=== PATIENT | male | born 1985 | race Two or more races ===

== ENCOUNTER 2020-07-04 12:04 | Emergency (ER) | payer OTHER ==
[~2020-07-04] VITALS: Ht 198.1 cm; Wt 133.8 kg
[2020-07-04] MEDS ORDERED: DILANTIN100 MG (12:21)
== END 2020-07-04 19:28 | disposition home or self-care (01) ==
LOC: ER 12:04
DX: M62.838 Other muscle spasm (principal); M54.2 Cervicalgia; M54.89 Other dorsalgia